=== PATIENT | male | born 1985 | race Caucasian/White ===

== ENCOUNTER 2019-10-02 19:51 | Emergency (ER) | payer OTHER, MEDICAID ==
[2019-10-02] MEDS: Lidocaine 1% 30 ML SDV INJECT ONE (21:18)
[2019-10-02] MEDS: Bacitracin Oint 1 GM U/D Packet TOP ONE (21:35)
--- NOTE | 2019-10-02 21:59 | EDM.PDOC ---
ED HPI GENERAL MEDICAL PROBLEM - General Chief Complaint: Laceration Stated Complaint: SLICED LEFT THUMB Time Seen by Provider: 10/02/19 21:00 Source of Information: Reports: Patient History Limitations: Reports: No Limitations - History of Present Illness INITIAL COMMENTS - FREE TEXT/NARRATIVE: 34 year of male who presents to the ER after sustaining a laceration 2 hours ago. Patient reports he was cutting lettuce at work and the knife slip and slice the tip of his left thumb. Bleeding controlled. 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 [No Known Home Meds] 10/02/19 [History] Past Medical History - Past Health History Medical/Surgical History: Denies Medical/Surgical History Social & Family History - Tobacco Use Smoking Status *Q: Current Every Day Smoker Years of Tobacco use: 14 Packs/Tins Daily: 0.1 - Caffeine Use Caffeine Use: Reports: Soda - Recreational Drug Use Recreational Drug Use: No ED ROS GENERAL - Review of Systems Review Of Systems: Comprehensive ROS is negative, except as noted in HPI. ED EXAM, SKIN/RASH Exam: See Below Exam Limited By: No Limitations General Appearance: Alert Extremities: Normal Inspection, Normal Range of Motion Psychiatric: Normal Affect, Normal Mood Skin: Other (curve laceration of the tip of the left thumb into the nail.) Location, Skin: Upper Extremity, Left ED SKIN PROCEDURES - Laceration/Wound Repair Left Digit - 1st (Thumb) Appearance: Superficial Distal NVT: Neuro & Vascular Intact Anesthetic Type: Local Local Anesthesia - Lidocaine (Xylocaine): 1% Plain Local Anesthetic Volume: 3cc Skin Prep: Chlorhexidine (Hibiciens), Sterile Drape Exploration/Debridement/Repair: Wound Explored, Minimal Debridement, No Foreign Material Found, Other (Skin flap removed.) Tetanus Status Addressed: Yes Complications: No Course - Vital Signs Last Recorded V/S: Last Vital Signs Temp 96.4 F L 10/02/19 21:06 Pulse 81 10/02/19 21:06 Resp 16 10/02/19 21:06 BP 126/78 10/02/19 21:06 Pulse Ox 100 10/02/19 21:06 - Orders/Labs/Meds Meds: Medications Discontinued Medications Generic Name Dose Route Start Last Admin Trade Name Roxy PRN Reason Stop Dose Admin Bacitracin 1 dose 10/02/19 21:20 Bacitracin Oint 1 Gm TOP 10/02/19 21:21 ONETIME ONE Lidocaine HCl 30 ml 10/02/19 21:04 Xylocaine-Mpf 1% INJECT 10/02/19 21:05 ONETIME ONE - Re-Assessments/Exams Free Text/Narrative Re-Assessment/Exam: Wound cleaned , bleeding controlled, antibiotic and dressing applied. Encourage him to elevated his left hand above his heart when lying down. Departure - Departure Time of Disposition: 22:10 Disposition: Home, Self-Care 01 Condition: Good Clinical Impression: Laceration of thumb, left Qualifiers: Encounter type: initial encounter Damage to nail status: with damage Foreign body presence: without foreign body Qualified Code(s): S61.112A - Laceration without foreign body of left thumb with damage to nail, initial encounter - Discharge Information Instructions: Nail Bed Injury, [id number], Laceration Care, Adult, Easy-to- Read Additional Instructions: Keep wound clean and dry. Symptoms to return to the ER review with patient. Follow up with PCP in four days. Sepsis Event Note - Evaluation Sepsis Screening Result: No Definite Risk - Focused Exam Vital Signs: Vital Signs Temp Pulse Resp BP Pulse Ox 10/02/19 21:06 96.4 F L 81 16 126/78 100 Date Exam was Performed: 10/02/19 Time Exam was Performed: 21:47
== END 2019-10-02 22:17 | disposition home or self-care (01) ==
LOC: DL.ED 19:51
DX: S61.112A Laceration without foreign body of left thumb with damage to nail, initial encounter (principal); F17.210 Nicotine dependence, cigarettes, uncomplicated; W26.0XXA Contact with knife, initial encounter; Y99.0 Civilian activity done for income or pay
CPT/HCPCS: 99282; J2001

== ENCOUNTER 2021-11-07 04:20 | Emergency (ER) | payer MEDICAID, OTHER ==
[2021-11-07 05:23] LABS: ANION GAP 12.8 mEq/L (7-13); CHLORIDE,CL 101 mmol/L (98-107); SODIUM,NA 139 mmol/L (136-145)
[2021-11-07 05:42] LABS: CORONAVIRUS COVID-19 NAA NEGATIVE (NEGATIVE)
[2021-11-07 06:22] LABS: AMPHETAMINES,URINE POSITIVE (NEGATIVE); BARBITURATES,URINE NEGATIVE (NEGATIVE); BENZODIAZEPINE,URINE NEGATIVE (NEGATIVE); MDMA (ECSTASY), URINE NEGATIVE (NEGATIVE); METHADONE,URINE NEGATIVE (NEGATIVE); METHAMPHETAMINES,URINE POSITIVE (NEGATIVE); OPIATES,URINE NEGATIVE (NEGATIVE); OXYCODONE,URINE NEGATIVE (NEGATIVE); PHENCYCLIDINE,URINE NEGATIVE (NEGATIVE); TCA,URINE NEGATIVE (NEGATIVE)
== END 2021-11-07 06:44 | disposition home or self-care (01) ==
LOC: DL.ED 04:20
DX: R07.9 Chest pain, unspecified (principal); F17.210 Nicotine dependence, cigarettes, uncomplicated; Z20.822 Contact with and (suspected) exposure to COVID-19
CPT/HCPCS: 0240U; 36415; 71045; 80053; 80305; 81001; 83605; 84484; 85025; 85379; 85610; 87040; 93005; 99285